=== PATIENT | male | born 1960 | race Caucasian/White ===

== ENCOUNTER → 2023-11-11 09:52 | Outpatient (BNVA) | payer OTHER, SELFPAY | PROVIDERS: PCP Family Medicine; Visit Provider Family Medicine | DX: I10 Essential (primary) hypertension (principal); E78.5 Hyperlipidemia, unspecified | CPT/HCPCS: 80053; 80061 ==

== ENCOUNTER → 2024-02-04 10:04 | Outpatient (BNVA) | payer OTHER, SELFPAY | PROVIDERS: PCP Family Medicine; Visit Provider Internal Medicine Rheumatology | DX: M45.9 Ankylosing spondylitis of unspecified sites in spine (principal); Z79.899 Other long term (current) drug therapy; Z11.59 Encounter for screening for other viral diseases; Z11.1 Encounter for screening for respiratory tuberculosis | CPT/HCPCS: 36415; 72040; 72072; 72100; 72202; 80076; 82565; 84550; 85025; 85651; 86140; 86480; 86704; 86803; 87340 ==

== ENCOUNTER 2024-02-10 08:56 | Oncology outpatient (recurring) (ONCR) | payer OTHER, SELFPAY ==
[2024-02-10] VITALS (11 sets, daily range): BP systolic 165–199; BP diastolic 86–101; PULSE 52–70; RESP 16–17; TEMP 36.6–37.1; O2SAT 97–99
[2024-02-10] MEDS: diphenhydrAMINE 50 mg/mL SDV 1mL 25 MG IVP (09:58)
[2024-02-10] MEDS: methylPREDNISolone sod succ 40 mg/mL INJ IVP (10:08)
[2024-02-10] MEDS: sodium chloride 0.9% 250 ML 75 ML IV (10:17)
[2024-02-10] MEDS: SODIUM CHLORIDE 0.9% IV (10:47)
[2024-02-10] MEDS: INFLIXIMAB ABDA IV (10:47)
[2024-02-10] MEDS: cloNIDine 0.1 mg Tablet PO (12:33)
== END 2024-03-11 23:59 | disposition home or self-care (01) ==
PROVIDERS: PCP Family Medicine; Visit Provider Internal Medicine Rheumatology
DX: M45.9 Ankylosing spondylitis of unspecified sites in spine (principal)
CPT/HCPCS: 96375; 96413; 96415; A4222; J1200; J2919; J7050; Q5104

== ENCOUNTER 2024-03-23 08:50 | Oncology outpatient (recurring) (ONCR) | payer OTHER, SELFPAY ==
[2024-03-23] VITALS (8 sets, daily range): BP systolic 125–159; BP diastolic 80–86; PULSE 60–84; RESP 16; TEMP 36–36.6; O2SAT 95–99
[2024-03-23] MEDS: acetaminophen 325 mg Tablet 650 MG PO (10:36)
[2024-03-23] MEDS: diphenhydrAMINE 50 mg/mL SDV 1mL 25 MG IVP (10:36)
[2024-03-23] MEDS: methylPREDNISolone sod succ 40 mg/mL INJ IVP (10:37)
[2024-03-23] MEDS: sodium chloride 0.9% 250 ML 75 ML IV (10:37)
[2024-03-23] MEDS: INFLIXIMAB ABDA IV (11:41)
[2024-03-23] MEDS: SODIUM CHLORIDE 0.9% IV (11:41)
== END 2024-04-11 23:55 | disposition home or self-care (01) ==
PROVIDERS: PCP Family Medicine; Visit Provider Internal Medicine Rheumatology
DX: M45.9 Ankylosing spondylitis of unspecified sites in spine (principal); Z79.899 Other long term (current) drug therapy
CPT/HCPCS: 96365; 96366; A4222; J1200; J2919; J7050; Q5104

== ENCOUNTER 2024-05-04 08:49 | Oncology outpatient (recurring) (ONCR) | payer OTHER, SELFPAY ==
[2024-05-04] VITALS (7 sets, daily range): BP systolic 121–133; BP diastolic 80–87; PULSE 60–70; RESP 16–18; TEMP 35.8–36.7; O2SAT 95–98
[2024-05-04] MEDS: sodium chloride 0.9% 250 ML 75 ML IV (09:14)
[2024-05-04] MEDS: acetaminophen 325 mg Tablet 650 MG PO (09:14)
[2024-05-04 09:15] LABS: Basophils # 0.2 10^3/uL (0.0-0.1); Eosinophils # 0.3 10^3/uL (0.0-0.8); Hematocrit 49.7 % (37-53); Lymphocytes # 3.9 10^3/uL (0.8-4.8); Lymphocytes % 42.6 %; Mean Corpuscular HGB Conc 34.6 g/dL (30-55); Mean Corpuscular Volume 83.8 fl (82-101); Mean Platelet Volume 10.4 fL (7.4-10.4); Monocytes # 0.8 10^3/uL (0.2-0.9); Monocytes % 8.8 %; Neutrophils % 43.2 %; Nucleated Red Blood Cells % 0 %; Platelet Count 203 10^3/cmm (157-399); Red Blood Count 5.93 10^6/uL (3.85-5.65); Red Cell Distribution Width 15.7 % (12.1-15.1); White Blood Count 9.04 10^3/uL (3.29-11.43)
[2024-05-04] MEDS: diphenhydrAMINE 50 mg/mL SDV 1mL 25 MG IVP (09:15)
[2024-05-04] MEDS: methylPREDNISolone sod succ 40 mg/mL INJ IVP (09:18)
[2024-05-04 09:39] LABS: Alanine Aminotransferase 40 U/L (0-41); Albumin Level 4.1 g/dL (3.5-5.2); Alkaline Phosphatase 99 U/L (40-130); Aspartate Amino Transferase 29 U/L (0-40); C Reactive Protein 3.9 mg/L (0.0-4.9); Creatinine Clr Calc Pharmacy 109.9025; Globulin 3.1 g/dL (1.3-4.6); Glomerular Filtration Rate 85.5 mL/min (90-130); Total Bilirubin 0.6 mg/dL (0.15-1.2); Total Protein 7.2 g/dL (6.6-8.7)
[2024-05-04] MEDS: SODIUM CHLORIDE 0.9% IV (10:05)
[2024-05-04] MEDS: INFLIXIMAB ABDA IV (10:05)
[2024-05-04 10:30] LABS: Erythrocyte Sedimentation Rate 21 mm/hr (0-10)
== END 2024-05-11 23:59 | disposition home or self-care (01) ==
PROVIDERS: PCP Family Medicine; Visit Provider Internal Medicine Rheumatology
DX: M45.9 Ankylosing spondylitis of unspecified sites in spine (principal); Z79.899 Other long term (current) drug therapy
CPT/HCPCS: 80076; 82565; 85025; 85651; 86140; 96375; 96413; 96415; A4222; J1200; J2919; J7050; Q5104

== ENCOUNTER 2024-06-15 09:08 | Oncology outpatient (recurring) (ONCR) | payer OTHER, SELFPAY ==
[2024-06-15] VITALS (8 sets, daily range): BP systolic 130–162; BP diastolic 76–89; PULSE 52–79; RESP 16; TEMP 36.2–36.9; O2SAT 95–97
[2024-06-15] MEDS: acetaminophen 325 mg Tablet 650 MG PO (09:42)
[2024-06-15] MEDS: diphenhydrAMINE 50 mg/mL SDV 1mL 25 MG IVP (09:43)
[2024-06-15] MEDS: methylPREDNISolone sod succ 40 mg/mL INJ IVP (09:50)
[2024-06-15] MEDS: INFLIXIMAB ABDA IV (10:26)
[2024-06-15] MEDS: SODIUM CHLORIDE 0.9% IV (10:26)
== END 2024-07-11 23:59 | disposition home or self-care (01) ==
PROVIDERS: PCP Family Medicine; Visit Provider Internal Medicine Rheumatology
DX: M45.9 Ankylosing spondylitis of unspecified sites in spine (principal); Z79.899 Other long term (current) drug therapy
CPT/HCPCS: 96365; 96366; 96375; A4222; J1200; J2919; J7050; Q5104

== ENCOUNTER 2024-07-27 08:58 | Oncology outpatient (recurring) (ONCR) | payer OTHER, SELFPAY ==
[2024-07-27 09:44] VITALS: BP 131/82; PULSE 73; RESP 17; TEMP 36.6; O2SAT 95
[2024-07-27] MEDS: acetaminophen 325 mg Tablet 650 MG PO (09:48)
[2024-07-27] MEDS: sodium chloride 0.9% 250 ML 100 ML IV (09:49)
[2024-07-27] MEDS: diphenhydrAMINE 50 mg/mL SDV 1mL 25 MG IVP (09:50)
[2024-07-27 09:53] LABS: Basophils # 0.1 10^3/uL (0.0-0.1); Eosinophils # 0.1 10^3/uL (0.0-0.8); Lymphocytes # 3.2 10^3/uL (0.8-4.8); Lymphocytes % 38.2 %; Mean Corpuscular HGB Conc 34.7 g/dL (30-55); Mean Corpuscular Hemoglobin 30.8 pg (27-33); Mean Corpuscular Volume 88.7 fl (82-101); Mean Platelet Volume 10.6 fL (7.4-10.4); Monocytes # 0.6 10^3/uL (0.2-0.9); Monocytes % 7.4 %; Neutrophils # 4.33 10^3/uL (1.8-7.7); Neutrophils % 51.9 %; Nucleated Red Blood Cells % 0 %; Platelet Count 201 10^3/cmm (157-399); Red Cell Distribution Width 12.5 % (12.1-15.1); White Blood Count 8.33 10^3/uL (3.29-11.43)
[2024-07-27] MEDS: methylPREDNISolone sod succ 40 mg/mL INJ IVP (09:53)
[2024-07-27 10:15] LABS: Alanine Aminotransferase 53 U/L (0-41); Alkaline Phosphatase 88 U/L (40-130); Aspartate Amino Transferase 25 U/L (0-40); Creatinine Clr Calc Pharmacy 121.4287; Total Bilirubin 0.7 mg/dL (0.15-1.2)
[2024-07-27] MEDS: SODIUM CHLORIDE 0.9% IV (10:26)
[2024-07-27] MEDS: INFLIXIMAB ABDA IV (10:26)
[2024-07-27 10:38] LABS: Erythrocyte Sedimentation Rate 23 mm/hr (0-10)
[2024-07-27 11:41] VITALS: BP 132/80; PULSE 55; RESP 17; TEMP 36.5; O2SAT 96
== END 2024-08-11 23:59 | disposition home or self-care (01) ==
PROVIDERS: PCP Family Medicine; Referring Provider Internal Medicine Rheumatology; Visit Provider Internal Medicine Rheumatology
DX: M45.9 Ankylosing spondylitis of unspecified sites in spine (principal); Z79.899 Other long term (current) drug therapy
CPT/HCPCS: 80076; 82565; 85025; 85651; 86140; 96375; 96413; A4222; J1200; J2919; J7050; Q5104

== ENCOUNTER 2024-09-07 08:54 | Oncology outpatient (recurring) (ONCR) | payer OTHER, SELFPAY ==
[2024-09-07] MEDS: acetaminophen 325 mg Tablet 650 MG PO (09:35)
[2024-09-07] MEDS: diphenhydrAMINE 50 mg/mL SDV 1mL 25 MG IVP (09:36)
[2024-09-07] MEDS: methylPREDNISolone sod succ 40 mg/mL INJ IVP (09:40)
[2024-09-07] MEDS: infliximab-abda 1,000 MG in sodium chloride 0.9% 250 ML 250 MG IV (10:08)
[2024-09-07 11:23] VITALS: BP 132/80; PULSE 16; RESP 17; TEMP 35.8; O2SAT 99
== END 2024-09-11 23:59 | disposition home or self-care (01) ==
PROVIDERS: PCP Family Medicine; Referring Provider Internal Medicine Rheumatology; Visit Provider Internal Medicine Rheumatology
DX: M45.9 Ankylosing spondylitis of unspecified sites in spine (principal); Z79.899 Other long term (current) drug therapy
CPT/HCPCS: 96375; 96413; A4222; J1200; J2919; J7050; Q5104

== ENCOUNTER → 2024-10-06 11:29 | Outpatient (BNVA) | payer OTHER, SELFPAY | PROVIDERS: PCP Family Medicine; Visit Provider Internal Medicine Rheumatology | DX: R76.8 Other specified abnormal immunological findings in serum (principal); M45.0 Ankylosing spondylitis of multiple sites in spine; Z79.899 Other long term (current) drug therapy | CPT/HCPCS: 36415; 80076; 82565; 85007; 85025; 85651; 86140 ==

== ENCOUNTER 2024-11-19 12:49 | Oncology outpatient (recurring) (ONCR) | payer OTHER, SELFPAY ==
[2024-11-19 12:57] VITALS: BP 150/75; PULSE 75; RESP 16; TEMP 36.6; O2SAT 97
[2024-11-19] MEDS: sodium chloride 0.9% 250 ML 75 ML IV (13:15)
[2024-11-19] MEDS: acetaminophen 325 mg Tablet 650 MG PO (13:17)
[2024-11-19] MEDS: diphenhydrAMINE 50 mg/mL SDV 1mL 25 MG IVP (13:20)
[2024-11-19] MEDS: methylPREDNISolone sod succ 40 mg/mL INJ IVP (13:25)
[2024-11-19 15:52] VITALS: BP 124/78; PULSE 78; RESP 16; TEMP 36.7; O2SAT 96
== END 2024-11-19 23:59 | disposition home or self-care (01) ==
PROVIDERS: PCP Family Medicine; Referring Provider Internal Medicine Rheumatology; Visit Provider Internal Medicine Rheumatology
DX: M45.9 Ankylosing spondylitis of unspecified sites in spine (principal); Z79.620 Long term (current) use of immunosuppressive biologic
CPT/HCPCS: 96375; 96413; A4222; J1200; J1745; J2919; J7050; J9999

== ENCOUNTER 2024-12-31 11:00 | Oncology outpatient (recurring) (ONCR) | payer OTHER, SELFPAY ==
--- NOTE | 2024-12-23 08:45 | MR_ITS ---
WS: [id number] MRI HEAD WITH CONTRAST WITH ATTENTION TO THE INTERNAL AUDITORY CANALS TECHNIQUE: Sagittal T1, T2 axial, T2 axial flair, axial susceptibility weighted imaging, axial diffusion weighted images, and coronal T2 images were obtained. Pre and post T1 axial and post T1 coronal images. ADC and FSPGR images. Post gadolinium images with attention to the internal auditory canals. Axial fiesta imaging. CLINICAL INFORMATION: trigeminal neurolgia FINDINGS: No evidence of restricted diffusion to suggest acute ischemia. No hemosiderin. Paranasal sinuses and mastoid air cells are well aerated. Normal posterior nasopharynx normal vascular flow voids at the skull base. No extra-axial fluid collections. Mild parenchymal volume loss. Normal optic chiasm and pituitary infundibulum. . Proximal 7th and 8th cranial nerves are normal in appearance. Normal trigeminal nerve root entry zones. No abnormal intracranial enhancement. Normal dural venous sinuses. Hypoenhancing nodule in the RIGHT aspect of the pituitary measuring 7.8 x 7.0 mm may represent a microadenoma but not well evaluated on this study. This can be followed up with MRI pituitary. Recommend correlation with pituitary function studies. MR/MR iac's wo/w con* [id number] IMPRESSION: 1. No evidence of restricted diffusion to suggest acute ischemia. 2. No suspicious intracranial signal abnormalities. Mild parenchymal volume lo ss. 3. Proximal 7th and 8th cranial nerves are normal in appearance. No evidence o f enhancing IAC or CP angle mass. 4. Normal trigeminal nerve root entry zones. 5. Hypoenhancing mass in the RIGHT aspect of the sella measuring approximately 7.8 x 7.0 mm. This may represent a microadenoma but not well evaluated on this study. Recommend correlation with pituitary function studies. This can be foll owed up with MRI of the pituitary. Consider endocrine consultation. 6. No hemosiderin.
[2024-12-23] MEDS: gadobenate dimeglumine 20 mL vial IV (09:24)
[2024-12-31 11:33] VITALS: BP 141/75; PULSE 73; RESP 16; TEMP 36.3; O2SAT 95
[2024-12-31] MEDS: sodium chloride 0.9% 250 ML 75 ML IV (12:20)
[2024-12-31] MEDS: diphenhydrAMINE 50 mg/mL SDV 1mL 25 MG IVP (12:22)
[2024-12-31] MEDS: acetaminophen 325 mg Tablet 650 MG PO (12:23)
[2024-12-31] MEDS: methylPREDNISolone sod succ 40 mg/mL INJ IVP (12:31)
== END 2024-12-31 23:59 | disposition home or self-care (01) ==
PROVIDERS: PCP Family Medicine; Referring Provider Internal Medicine Rheumatology; Visit Provider Family Medicine
DX: Z53.9 Procedure and treatment not carried out, unspecified reason; M45.9 Ankylosing spondylitis of unspecified sites in spine; Z79.620 Long term (current) use of immunosuppressive biologic
CPT/HCPCS: 70553; 96375; 96413; J1200; J1745; J2919; J7050; J9999

== ENCOUNTER 2025-01-14 08:29 | Outpatient (CLI) | payer OTHER, SELFPAY ==
[2025-01-14 10:31] LABS: Cortisol Random 7.91 ug/dL (2.47-19.5); Free T4 Free Thyroxine 1.12 ng/dL (0.82-1.77); Testosterone Total 465.9 ng/dL (193-740)
[2025-01-14 10:56] LABS: Follicle Stimulating Hormone 3.2 mIU/mL (1.5-12.4); Luteinizing Hormone 3.7 mIU/mL (1.7-8.6); Prolactin 9.31 ng/mL (4.0-15.2)
[2025-01-17 19:16] LABS: Adrenocorticotropic Hormone 10 pg/mL (6-50)
[2025-01-20 17:34] LABS: IGF1 LC/MS 79 ng/mL (41-279); Z Score (Male) -0.9 SD (-2.0 - +2.0)
== END 2025-01-14 08:30 | disposition home or self-care (01) ==
PROVIDERS: PCP Family Medicine; Visit Provider Internal Medicine
DX: D35.2 Benign neoplasm of pituitary gland (principal); G50.0 Trigeminal neuralgia; M45.0 Ankylosing spondylitis of multiple sites in spine; Z79.899 Other long term (current) drug therapy
CPT/HCPCS: 36415; 82024; 82533; 83001; 83002; 84146; 84305; 84403; 84439; 84443

== ENCOUNTER 2025-01-19 08:32 | Outpatient (CLI) | payer OTHER, SELFPAY ==
[2025-01-19 14:48] LABS: Urine Creatinine 55 mg/dL (39-259)
[2025-01-19 15:30] LABS: Total Volume Urine 1500 ml
[2025-01-25 18:24] LABS: Free Cortisol Urine 9.8 mcg/24 h (4.0-50.0); Total Urine 1500 mL; Urine Creatinine 0.85 g/24 h (0.50-2.15)
== END 2025-01-19 08:33 | disposition home or self-care (01) ==
PROVIDERS: PCP Family Medicine; Visit Provider Internal Medicine
DX: D35.2 Benign neoplasm of pituitary gland (principal); G50.0 Trigeminal neuralgia; M45.0 Ankylosing spondylitis of multiple sites in spine; Z79.899 Other long term (current) drug therapy
CPT/HCPCS: 82530; 82570

== ENCOUNTER 2025-02-18 10:50 | Oncology outpatient (recurring) (ONCR) | payer OTHER, SELFPAY ==
[2025-02-18] MEDS: diphenhydrAMINE 50 mg/mL SDV 1mL 25 MG IVP (13:02)
[2025-02-18] MEDS: methylPREDNISolone sod succ 40 mg/mL INJ IVP (13:06)
[2025-02-18] MEDS: infliximab-abda 1,000 MG in sodium chloride 0.9% 150 ML 250 MG IV (13:36)
[2025-02-18 14:44] VITALS: BP 130/72; PULSE 66; RESP 16; TEMP 36.6; O2SAT 98
== END 2025-03-11 23:59 | disposition home or self-care (01) ==
PROVIDERS: PCP Family Medicine; Visit Provider Internal Medicine Rheumatology
DX: M45.9 Ankylosing spondylitis of unspecified sites in spine (principal); Z79.899 Other long term (current) drug therapy
CPT/HCPCS: 96375; 96413; A4222; J1200; J2919; J7050; J9999; Q5104

== ENCOUNTER 2025-04-01 10:46 | Oncology outpatient (recurring) (ONCR) | payer OTHER, SELFPAY ==
[2025-04-01] MEDS: diphenhydrAMINE 50 mg/mL SDV 1mL 25 MG IVP (12:12)
[2025-04-01] MEDS: methylPREDNISolone sod succ 40 mg/mL INJ IVP (12:15)
[2025-04-01] MEDS: infliximab-abda 1,000 MG in sodium chloride 0.9% 150 ML 300 MG IV (12:42)
[2025-04-01 13:48] VITALS: BP 116/67; PULSE 51; TEMP 36.6
== END 2025-04-11 23:59 | disposition home or self-care (01) ==
PROVIDERS: PCP Family Medicine; Visit Provider Internal Medicine Rheumatology
DX: M45.9 Ankylosing spondylitis of unspecified sites in spine (principal); Z79.899 Other long term (current) drug therapy
CPT/HCPCS: 96375; 96413; A4222; J1200; J2919; J7050; J9999; Q5104

== ENCOUNTER 2025-05-18 08:56 | Oncology outpatient (recurring) (ONCR) | payer OTHER, SELFPAY ==
[2025-05-18 09:30] LABS: Hematocrit 42.2 % (37-53); Hemoglobin 14.70 g/dL (11.27-16.99); Mean Corpuscular HGB Conc 34.8 g/dL (30-55); Mean Corpuscular Hemoglobin 29.8 pg (27-33); Mean Corpuscular Volume 85.4 fl (82-101); Nucleated Red Blood Cells % 0 %; Platelet Count 195 10^3/cmm (157-399); Red Blood Count 4.94 10^6/uL (3.85-5.65); White Blood Count 7.15 10^3/uL (3.29-11.43)
[2025-05-18 09:44] LABS: Alanine Aminotransferase 31 U/L (0-41); Albumin Level 4.2 g/dL (3.5-5.2); Alkaline Phosphatase 78 U/L (40-130); Aspartate Amino Transferase 25 U/L (0-40); Creatinine Clr Calc Pharmacy 114.9000; Globulin 2.8 g/dL (1.3-4.6); Total Protein 7.0 g/dL (6.6-8.7)
[2025-05-18] MEDS: diphenhydrAMINE 50 mg/mL SDV 1mL 25 MG IVP (09:44)
[2025-05-18] MEDS: methylPREDNISolone sod succ 40 mg/mL INJ IVP (09:48)
[2025-05-18 10:26] LABS: CRP High Sensitivity Cardiac 0.240 mg/dL (0.0-0.3)
[2025-05-18] MEDS: infliximab-abda 1,000 MG in sodium chloride 0.9% 150 ML 250 MG IV (10:26)
[2025-05-18 11:32] VITALS: BP 131/69; PULSE 57; RESP 17; TEMP 36.6; O2SAT 98
== END 2025-06-11 23:59 | disposition home or self-care (01) ==
PROVIDERS: PCP Family Medicine; Visit Provider Internal Medicine Rheumatology
DX: M45.9 Ankylosing spondylitis of unspecified sites in spine (principal); Z79.899 Other long term (current) drug therapy; Z79.620 Long term (current) use of immunosuppressive biologic
CPT/HCPCS: 80076; 82565; 85025; 85651; 86141; 96365; 96375; A4222; J1200; J2919; J7050; J9999; Q5104

== ENCOUNTER → 2025-06-09 08:51 | Outpatient (BNVA) | payer OTHER, SELFPAY | PROVIDERS: PCP Family Medicine; Visit Provider Specialist | DX: G56.03 Carpal tunnel syndrome, bilateral upper limbs (principal); M54.2 Cervicalgia | CPT/HCPCS: 73110 ==

== ENCOUNTER 2025-06-29 08:19 | Oncology outpatient (recurring) (ONCR) | payer OTHER, SELFPAY ==
[2025-06-29 08:41] VITALS: BP 122/71; PULSE 83; RESP 16; TEMP 36.6; O2SAT 99
[2025-06-29] MEDS: diphenhydrAMINE 50 mg/mL SDV 1mL 25 MG IVP (08:58)
[2025-06-29] MEDS: methylPREDNISolone sod succ 40 mg/mL INJ IVP (09:01)
[2025-06-29 10:42] VITALS: BP 120/77; PULSE 74; O2SAT 97
== END 2025-07-11 23:59 | disposition home or self-care (01) ==
PROVIDERS: PCP Family Medicine; Visit Provider Internal Medicine Rheumatology
DX: M45.9 Ankylosing spondylitis of unspecified sites in spine (principal); Z79.899 Other long term (current) drug therapy
CPT/HCPCS: 96375; 96413; A4222; J1200; J2919; J7050; J9999; Q5104

== ENCOUNTER 2025-07-01 07:06 | Outpatient (CLI) | payer OTHER, SELFPAY ==
--- NOTE | 2025-07-01 07:15 | MR_ITS ---
WS: [id number] MRI CERVICAL SPINE NONCONTRAST HISTORY: M54.12 - Radiculopathy, cervical region COMPARISON: None available. Technique: Multiplanar, multisequence noncontrast imaging of the cervical spine. Normal cervical alignment with no compression fracture or significant disc space narrowing. The spaces are mildly narrowed. Hypertrophic osteophytes at all levels. No signal abnormality in the cord. 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 C2-C3: Normal. C3-C4: Mild osteophytic ridging and mild facet arthritis. Mild RIGHT foraminal stenosis. C4-C5: Mild annular disc bulging with osteophytic ridging and facet arthritis. Minimal central and foraminal stenosis, RIGHT greater than LEFT. C5-C6: Diffuse disc bulging with a central disc protrusion. Osteophytic ridging and marked facet arthritis. Moderate central and LEFT foraminal stenosis. Severe RIGHT foraminal stenosis due to disc osteophyte disease. C6-C7: Annular disc bulging with a central disc protrusion. Effacement of ventral CSF. Moderate-sized LEFT disc osteophyte complex causing severe LEFT foraminal stenosis. Mild RIGHT foraminal stenosis. C7-T1: Normal. RIGHT thyroid 9 mm nodule. MR/MR cervical spin wo con* [id number] IMPRESSION: 1. Moderate degenerative disc disease and cervical osteophytes. 2. Moderate central and LEFT foraminal stenosis and severe RIGHT foraminal coy nosis at C5-6 due to disc osteophyte disease. 3. Severe LEFT foraminal stenosis at C6-7. Small central disc protrusion with mild central and RIGHT foraminal stenosis at C6-7. 4. Minimal RIGHT foraminal stenosis at C3-4. 5. Minimal central and foraminal stenosis at C4-5.
== END 2025-07-01 07:07 | disposition home or self-care (01) ==
LOC: RAD 07:07
PROVIDERS: PCP Family Medicine; Visit Provider Specialist
DX: G24.3 Spasmodic torticollis (principal); G56.23 Lesion of ulnar nerve, bilateral upper limbs; G50.0 Trigeminal neuralgia; M25.78 Osteophyte, vertebrae; M48.02 Spinal stenosis, cervical region; M50.223 Other cervical disc displacement at C6-C7 level; M89.38 Hypertrophy of bone, other site; R93.7 Abnormal findings on diagnostic imaging of other parts of musculoskeletal system; M47.892 Other spondylosis, cervical region; M50.321 Other cervical disc degeneration at C4-C5 level; M50.322 Other cervical disc degeneration at C5-C6 level; M50.222 Other cervical disc displacement at C5-C6 level; M50.323 Other cervical disc degeneration at C6-C7 level; E04.1 Nontoxic single thyroid nodule
CPT/HCPCS: 72141

== ENCOUNTER 2025-07-13 06:42 | Day surgery (SDC) | payer OTHER, SELFPAY ==
[2025-07-13 07:04] VITALS: BP 151/86; PULSE 82; RESP 17; TEMP 36.4; O2SAT 96; BMI 27.0
--- NOTE | 2025-07-13 07:31 | ANES.PREANE2 ---
Pre-Anesthetic Assessment Height/Weight: Height 1.85 m Weight 92.986 kg Temp Pulse Resp BP Pulse Ox O2 Del Method 97.6 F 82 17 151/86 96 Room Air 07/13/25 07:04 07/13/25 07:04 07/13/25 07:04 07/13/25 07:04 07/13/25 07:04 07/13/25 07:04 Operation Date: 07/13/25 08:00 Proposed Procedures p Colonoscopy [id number] Z12.11(Not Applicable) - Tod Dinero MD Familial anesthetic complications: Never had anesthesia, no known family complications to anesthesia Was Beta Vida taken within 24 hours: N/A Was Clonidine taken within 24 hours: N/A Last intake: Intake Last Liquid Date 07/12/25 Last Liquid Time 22:30 Last Solid Date 07/12/25 Last Solid Time 06:00 Social No alcohol and No tobacco Exam alert, oriented x 3, clear to auscultation bilaterally and regular rate & rhythm Airway Submandibular: within normal limits Cervical ROM: Other (Decreased ROM) Mallampati: Class II Dentition: full History/ROS No significant history except as noted and No significant complaints Pulmonary Sleep Apnea (No CPAP) CV/HEM Hypertension Hx kidney stones Hepatic None reported GI None reported Metabolic None reported Musc/skel Osteoarthritis/DJD, Rheumatoid Arthritis and Weakness (Movement is becoming more difficult due to ankylosing spondylitis) Neuropsych Headache and Neuropathy Anesthetic Plan ASA status: 3 Anesthesia: Anesthesia Evaluation, General and MAC Risk of > 500 ml blood loss (7ml/kg in children): No Medications/Allergies Home Medications ?Medication ?Instructions ?Recorded ?Confirmed ?Last Taken ?Type infliximab [Remicade] 400 mg IV .[id number] 01/19/25 07/13/25 06/30/25 History carbamazepine 200 mg 200 mg PO BID #60 caps 06/14/25 07/13/25 07/11/25 Rx capsule,extended release [id number] onabotulinumtoxinA 100 unit 100 unit IM .[id number] cervical 06/24/25 07/13/25 Unknown Rx solution for injection (Botox) dystonia #1 ea lisinopril 20 mg tablet 20 mg PO DAILY 07/05/25 07/13/25 07/11/25 History prednisone 20 mg tablet 40 mg PO DAILY PRN joint pain flare 07/05/25 07/13/25 Unknown History Allergies Allergy/AdvReac Type Severity Reaction Status Date / Time No Known Allergies Allergy Verified 07/13/25 06:59 [facility] Anesthesia Medical History (Updated 06/24/25 @ 10:01 by Cristina Frost MD) Immunization counseling High risk medication use Podagra Hyperlipidemia Hypertension Ankylosing spondylitis Surgical History No history of previous surgery Family History Father CAD (coronary artery disease) Stroke Alcohol dependence Brother CAD (coronary artery disease) Sister Breast cancer Social History Smoking and tobacco/nicotine status: former use of tobacco/nicotine (quit 2022) Quit status (tobacco/nicotine): has quit using Year quit tobacco: 2022 Former quit date comment: started & stopped multiple times, went 17 years w/o before restarting Alcohol intake: former Former alcohol use details: was socially before but has stopped Substance/Drug Use: never Caregiver/support person: Yes Household members: other Details: mother Number of children: 1 Current occupational status: unemployed 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
--- NOTE | 2025-07-13 07:53 | W.PM.OPSUD ---
Surgery/Procedure H&P Update DATE OF PROCEDURE: July 13, 2025 DATE H&P PERFORMED: 06/17/25 H&P UPDATE INFORMATION: I have reviewed H&P completed within last 30 days, I have examined patient prior to procedure, No changes to prior documentation and Risks and benefits of the procedure reviewed PLANNED PROCEDURE: Operation Date: 07/13/25 08:00 Proposed Procedures p Colonoscopy [id number] Z12.11(Not Applicable) - Tod Dinero MD
[2025-07-13 08:17] VITALS: BP 166/69; PULSE 66; RESP 18; TEMP 36.3; O2SAT 94
[2025-07-13 08:28] VITALS: BP 125/81; PULSE 64; RESP 18; TEMP 36.4; O2SAT 97
--- NOTE | 2025-07-13 08:40 | ANE.PACU2 ---
Inpatient post-anesthesia follow up: Airway intact: Yes Vital signs: Temperature 97.6 F Pulse Rate 64 Respiratory Rate 18 Blood Pressure 125/81 Pulse Oximetry 97 Oxygen Delivery Me thod Room Air Oxygen Flow Rate Fraction of Inspir ed Oxygen Hydration adequate: Yes Nausea and vomiting: No Pain level: 1 Mental status: Baseline
== END 2025-07-13 08:40 | disposition home or self-care (01) ==
PROVIDERS: PCP Family Medicine; Visit Provider Student in an Organized Health Care Education/Training Program
PROC: 0DJD8ZZ Inspection of Lower Intestinal Tract, Via Natural or Artificial Opening Endoscopic (ICD-10-PCS; CPT 45378; principal; 2025-07-13 08:00)
DX: Z12.11 Encounter for screening for malignant neoplasm of colon (principal); K57.30 Diverticulosis of large intestine without perforation or abscess without bleeding; K64.4 Residual hemorrhoidal skin tags; G47.30 Sleep apnea, unspecified; M06.9 Rheumatoid arthritis, unspecified; G62.9 Polyneuropathy, unspecified; E78.5 Hyperlipidemia, unspecified; I10 Essential (primary) hypertension; Z87.891 Personal history of nicotine dependence
CPT/HCPCS: 45378; J2704; J7030

== ENCOUNTER 2025-08-10 08:28 | Oncology outpatient (recurring) (ONCR) | payer OTHER, SELFPAY ==
[2025-08-10 08:56] VITALS: BP 156/71; PULSE 72; TEMP 37; O2SAT 95
[2025-08-10 09:13] LABS: Hematocrit 44.1 % (37-53); Hemoglobin 15.10 g/dL (11.27-16.99); Mean Corpuscular HGB Conc 34.2 g/dL (30-55); Mean Corpuscular Hemoglobin 29.0 pg (27-33); Mean Corpuscular Volume 84.6 fl (82-101); Nucleated Red Blood Cells % 0 %; Platelet Count 229 10^3/cmm (157-399); Red Blood Count 5.21 10^6/uL (3.85-5.65); White Blood Count 9.84 10^3/uL (3.29-11.43)
[2025-08-10] MEDS: methylPREDNISolone sod succ 40 mg/mL INJ IVP (09:13)
[2025-08-10] MEDS: infliximab-abda 1,000 MG in sodium chloride 0.9% 150 ML 175 MG IV (10:09)
[2025-08-10 10:33] LABS: Alanine Aminotransferase 27 U/L (0-41); Albumin Level 4.3 g/dL (3.5-5.2); Alkaline Phosphatase 110 U/L (40-130); Aspartate Amino Transferase 18 U/L (0-40); Globulin 3.3 g/dL (1.3-4.6); Total Protein 7.6 g/dL (6.6-8.7)
[2025-08-10 11:30] VITALS: BP 129/67; PULSE 67; RESP 16; TEMP 36.4; O2SAT 98
== END 2025-08-11 23:59 | disposition home or self-care (01) ==
PROVIDERS: PCP Family Medicine; Visit Provider Internal Medicine Rheumatology
DX: M45.9 Ankylosing spondylitis of unspecified sites in spine; Z79.899 Other long term (current) drug therapy; Z53.9 Procedure and treatment not carried out, unspecified reason
CPT/HCPCS: 36415; 80076; 82565; 85025; 85651; 86140; 96375; 96413; A4222; J2919; J9999; Q5104